=== PATIENT | female | born 1945 | race Caucasian/White ===

== ENCOUNTER → 2016-05-10 | Outpatient (CLI) | payer MEDICARE, OTHER ==
[~2016-05-10] MED LIST: ATR20T PO; LVT.1T PO; METH4TAB PO; ONDA8TAB13 PO; TRAM50TA2 PO; [UNRECOGNIZED DRUG - OTHER] PO
--- NOTE | 2016-05-10 08:49 | Diagnostic Imaging Report ---
PROCEDURE: CT abdomen and pelvis without contrast. TECHNIQUE: Multiple contiguous axial images were obtained through the abdomen and pelvis without the use of intravenous contrast. INDICATION: Hematuria. FINDINGS: The lung bases appear clear. In the left hepatic lobe there is a 2.4-cm hypodense lesion and a smaller similar density lesion in the right hepatic dome posteriorly measuring 1.3 cm. These are likely related to hepatic cysts. The gallbladder, the adrenal glands, and the pancreas appear unremarkable. The spleen is not enlarged. There are numerous calcifications seen in the spleen compatible with old granulomas. There are calcifications along the lower pole of the right kidney. Some of these calcifications could be vascular. A 4-mm nonobstructive stone in the lower pole, however, is suggested. There is no hydronephrosis. No ureteric stone is identified. The pelvic calcification seen appears to relate to phleboliths. No urinary bladder stones. The uterus and adnexa appear grossly unremarkable. The abdominal aorta is normal in caliber. No para-aortic or iliac significantly enlarged lymph node is seen. There is no significant free fluid or fluid collection in the abdomen or pelvis. Diverticulosis mostly in the sigmoid colon without diverticulitis is seen. The appendix appears normal. There is prominent scoliosis convex to the left in the upper lumbar spine with old-appearing compression fracture of L2 and less prominent also old-appearing compression fracture of L1 seen. IMPRESSION: 1. Calcifications in the right renal hilum are mostly vascular. There is probable one 4-mm nonobstructive lower pole right kidney stone, however. No hydronephrosis. 2. Diverticulosis. No diverticulitis. 3. Marked scoliosis and old compression fractures of L1 and L2 vertebral bodies seen. Dictated by: Dictated on workstation # [id number]
== END ==
LOC: RAD 08:10
PROVIDERS: ATTEND Urology
DX: R31.9 Hematuria, unspecified (principal)
CPT/HCPCS: 74176

== ENCOUNTER → 2020-02-09 | Outpatient (CLI) | payer MEDICARE, OTHER ==
--- NOTE | 2020-02-09 09:01 | Diagnostic Imaging Report ---
PROCEDURE: US Thyroid. TECHNIQUE: Multiple Real-time grayscale images were obtained of the thyroid in various projections. INDICATION: Hypothyroidism. COMPARISON: None available. FINDINGS: The right lobe of the thyroid gland is small in size measuring 3.3 x 1.4 x 0.9 cm. It maintains a relatively homogeneous echotexture without discrete nodule. The left lobe of the thyroid gland is small in size measuring 2.8 x 0.9 x 0.6 cm. It maintains a relatively homogeneous echotexture without discrete nodule. The isthmus is unremarkable. IMPRESSION: Diffusely small thyroid gland without discrete nodule. Dictated by: Dictated on workstation # [id number]
--- NOTE | 2020-02-09 09:02 | Diagnostic Imaging Report ---
INDICATION: Epigastric pain. PROCEDURE: Ultrasound abdomen complete. TECHNIQUE: Multiple Real-time grayscale images were obtained of the abdomen in various projections. FINDINGS: The liver is normal in size at 13 cm. There is a cyst in the left lobe of the liver measuring approximately 3 cm in size. No solid liver mass is identified. The portal vein is patent and shows normal direction of flow. The gallbladder is without stones or sludge. No wall thickening or biliary ductal dilatation is seen. The pancreas is unremarkable. The spleen is normal in size at 8.7 cm. Atherosclerotic changes throughout the abdominal aorta are noted which is nonaneurysmal. The IVC is patent. The right and left kidneys are normal in size. No calculus or hydronephrosis is identified. There is no ascites. There are bilateral pleural effusions noted. IMPRESSION: 1. There is a 3 cm left lobe liver cyst. 2. No evidence of cholelithiasis or acute cholecystitis. 3. Bilateral pleural effusions. Dictated by: Dictated on workstation # [id number]
== END ==
LOC: RAD 07:00
PROVIDERS: ATTEND Family Medicine
DX: K76.89 Other specified diseases of liver (principal); E03.9 Hypothyroidism, unspecified; J90 Pleural effusion, not elsewhere classified; R60.9 Edema, unspecified
CPT/HCPCS: 76536; 76700

== ENCOUNTER → 2020-02-15 | Outpatient (CLI) | payer MEDICARE, OTHER ==
--- NOTE | 2020-02-15 16:09 | Diagnostic Imaging Report ---
PROCEDURE: CT chest, abdomen, and pelvis without contrast. TECHNIQUE: Multiple contiguous axial images were obtained through the chest, abdomen, and pelvis without the use of intravenous contrast. Auto Exposure Controls were utilized during the CT exam to meet ALARA standards for radiation dose reduction. INDICATION: Bilateral pleural effusions and dyspnea. Patient has history of breast carcinoma. COMPARISON: Correlation is made with prior CT abdomen and pelvis study from 05/10/2016. FINDINGS: CT chest: There are surgical clips in the left axilla. Postop changes of left-sided mastectomy are seen. No definite axillary lymphadenopathy is identified. Mediastinal and hilar evaluation is limited without intravenous contrast but no gross abnormality is seen. There are coronary arterial calcifications noted. The heart is markedly enlarged. There is a small amount of pericardial fluid. Small right and moderate left pleural effusion is seen. There appears to be an area of consolidation in the lingula. There is also some consolidation and air bronchograms in the left lower lobe. No discrete pulmonary mass is identified. There is some atelectasis or scarring in the right middle lobe. IMPRESSION: 1. Moderate left and small right pleural effusion. There is parenchymal consolidation in the lingula and left lower lobe. Minimal atelectasis or scarring in right middle lobe and right lower lobe is noted. No discrete mass is identified, although study is somewhat compromised due to absence of intravenous contrast. 2. Small pericardial effusion and cardiomegaly. CT abdomen and pelvis: Low attenuation lesions within the liver are noted suggestive of cysts. Gallbladder is unremarkable. Pancreas is difficult to evaluate due to absence of IV contrast. There are multiple granulomas within the spleen. There appear to be some nonobstructing calculi in lower pole of right kidney. No hydronephrosis is seen. Aorta is heavily calcified but non-aneurysmal. Bowel loops do not appear to be appreciably dilated. No definite free fluid is seen. Bladder is unremarkable. There is some edema in the subcutaneous tissues likely owing to anasarca. No definite osteolytic or blastic lesions are seen. IMPRESSION: 1. Hepatic cysts. 2. Nonobstructing right-sided nephrolithiasis. 3. Anasarca. 4. No other significant abnormality is detected. Dictated by: Dictated on workstation # [id number]
== END ==
LOC: CARD 13:49
PROVIDERS: ATTEND Family Medicine
DX: I51.7 Cardiomegaly (principal); J90 Pleural effusion, not elsewhere classified; J18.2 Hypostatic pneumonia, unspecified organism; N20.0 Calculus of kidney; K76.89 Other specified diseases of liver; R41.3 Other amnesia; R41.0 Disorientation, unspecified
CPT/HCPCS: 71250; 74176; 93306

== ENCOUNTER → 2020-02-18 | Outpatient (CLI) | payer MEDICARE, OTHER | LOC: CARD 10:11 | PROVIDERS: ATTEND Family Medicine | DX: I42.0 Dilated cardiomyopathy (principal) | CPT/HCPCS: 93005 ==

== ENCOUNTER → 2020-02-22 | Outpatient (CLI) | payer MEDICARE, OTHER ==
[~2020-02-22] MED LIST changes: +ASPI-1238 PO; +CLOP75TA28 PO; +FURO20TA4 PO; +LEVO88TA54 PO; +LOSA25TA41 PO; +MTP25TSR PO; +OXYB10TA29 PO; +POTA10CA43 PO; +SPIR25TA5 PO
--- NOTE | 2020-02-22 16:40 | Diagnostic Imaging Report ---
EXAMINATION: CT head without contrast. TECHNIQUE: Multiple contiguous axial images were obtained through the brain without the use of intravenous contrast. All CT scans use one or more of the following dose optimizing techniques: automated exposure control, MA and/or KvP adjustment based on a patient size and exam type, or iterative reconstruction. HISTORY: Confusion. COMPARISON: None available. FINDINGS: No large acute territorial ischemia, mass, or hemorrhage. No midline shift or mass effect. Decreased attenuation is seen in the periventricular and subcortical white matter. The ventricles and cortical sulci are prominent. The basilar cisterns are patent and unremarkable. The orbits are normal. Paranasal sinuses are normal. Mastoid air cells are clear. No soft tissue abnormality is seen. No osseus lesions or fractures are seen. IMPRESSION: 1. No large acute territorial ischemia, mass, or hemorrhage. 2. Chronic microvascular disease. 3. Generalized parenchymal volume loss. Dictated by: Dictated on workstation # [id number]
== END ==
LOC: RAD 15:55
PROVIDERS: ATTEND Family Medicine
DX: J90 Pleural effusion, not elsewhere classified (principal); R10.9 Unspecified abdominal pain; R41.3 Other amnesia; R41.0 Disorientation, unspecified; I99.8 Other disorder of circulatory system
CPT/HCPCS: 70450

== ENCOUNTER → 2020-02-23 | Outpatient (CLI) | payer MEDICARE, OTHER ==
[~2020-02-23] VITALS: Ht 152 cm; Wt 45.0 kg
[~2020-02-23] MED LIST changes: +CATHETER FLUSH 10 ML SYR IV PRN; +REGADENOSON 0.4 MG/5 ML SYR (LEXISCAN) IV ONE
[2020-02-23 09:19] VITALS: BP 128/98
[2020-02-23 09:21] VITALS: BP 128/98
--- NOTE | 2020-02-23 12:40 | Cardiology Stress Test Report ---
Stress Test Report Date of Procedure/Referring: Date of Procedure: Feb 23, 2020 PCP Ludmila Ulloa MD Admitting Physician Diane Arce DO Baseline Heart Rate: 93 Baseline Blood Pressure: Blood Pressure Systolic: 128 Blood Pressure Diastolic: 98 Baseline Vitals Vital Signs Date Time Temp Pulse Resp B/P (MAP) Pulse Ox O2 Delivery O2 Flow Rate FiO2 02/23/20 09:19 96 16 128/98 (108) 97 Room Air Baseline EKG: Baseline EKG: normal sinus rhythm Summary After explaining the procedure to the patient, she signed a consent and then brought to the stress nuclear laboratory. Patient received 0.4 mg Lexiscan for stress test, ECG, heart rate and blood pressure were monitored continuously. Resting and stress dose of radio tracer were injected, imaging was acquired and reviewed in short axis, horizontal long axis and vertical long axis views. TID: 1.07 SSS: 6 SDS: 2 EF: 18 1. Patient tolerated Lexiscan well 2. Decrease uptake involving the whole anterior wall and true apex and true apex with mild reversibility involving the mid to apical anterior wall suggestive of ischemia 3. Dilated left ventricle, inferior wall hypokinesia, EF 18 percent LUDMILA ULLOA MD Feb 23, 2020 12:40
== END ==
LOC: CARD 08:30
PROVIDERS: ATTEND Internal Medicine Cardiovascular Disease
DX: I50.9 Heart failure, unspecified (principal); I51.7 Cardiomegaly
CPT/HCPCS: 78452; 93017; A9502

== ENCOUNTER 2020-02-24 16:00 | Day surgery (SDC) | payer MEDICARE ==
[~2020-02-24] VITALS: Ht 152.4 cm; Wt 43.0 kg
[2020-02-24 14:20] VITALS: BP 138/93
[2020-02-24 14:24] LABS: HEMOGLOBIN 15.8 g/dL (11.5-16.0); MEAN PLATELET VOLUME 9.5 fL (9.0-12.2); WHITE BLOOD COUNT 9.8 10^3/uL (4.3-11.0)
[2020-02-24 14:42] LABS: ALANINE AMINOTRANSFERASE 39 U/L (0-55); ALBUMIN 4.7 GM/DL (3.2-4.5); ALKALINE PHOSPHATASE 131 U/L (40-136); BILIRUBIN,TOTAL 0.8 MG/DL (0.1-1.0); BUN/CREATININE RATIO 19; CALCIUM 10.2 MG/DL (8.5-10.1); CARBON DIOXIDE 26 MMOL/L (21-32); CHLORIDE 99 MMOL/L (98-107); CHOLESTEROL 164 MG/DL (< 200); CREATININE SERUM 0.86 MG/DL (0.60-1.30); GFR ESTIMATED > 60; GLUCOSE 84 MG/DL (70-105); HDL CHOLESTEROL 59 MG/DL (40-60); POTASSIUM 4.2 MMOL/L (3.6-5.0); SODIUM 135 MMOL/L (135-145); TOTAL PROTEIN 7.6 GM/DL (6.4-8.2); TRIGLYCERIDES 74 MG/DL (<150); VLDL CHOLESTEROL 15 MG/DL (5-40)
--- NOTE | 2020-02-24 15:04 | Diagnostic Imaging Report ---
INDICATION: Preop heart catheter. EXAMINATION: Portable erect AP chest at 2:28 p.m. FINDINGS: The recent CT chest, abdomen and pelvis exam of 02/15/2020 noted cardiomegaly and a small pericardial effusion. There were also bilateral pleural effusions with a left-sided effusion measuring almost 6 cm in maximum depth. The right-sided effusion measures 1.2 cm. There is also atelectasis/infiltrate involving much of the left lung base and lingula. On this study, the left lung base remains opacified. The left upper lung and right lung seem generally clear. There may still be a small amount of fluid in the right lung base. The heart is difficult to evaluate but does not appear to have changed significantly. The mediastinum is not widened. The osseous structures are intact. Surgical clips are again seen overlying the left axilla. IMPRESSION: 1. There is persistent cardiomegaly and obscuration of the left lung base by atelectasis/infiltrate and fluid. 2. No new abnormality has developed otherwise. 3. These results were discussed with Dr. Ulloa. Dictated by: Dictated on workstation # [id number]
--- NOTE | 2020-02-24 15:43 | Cardiac Procedure Note-CS/ASA ---
Pre-Procedure Note Pre-Op Procedure Note H&P Reviewed The H&P was reviewed, patient examined and no changes noted. Date H&P Reviewed: Feb 24, 2020 Time H&P Reviewed: 15:43 Conscious Sedation Pre-Proced Time 15:43 ASA Score 3 For ASA 3 and 4: Consider anesthesia and medical clearance. Also, for patients with a history of failed moderate sedation consider anesthesia. Airway Lungs Heart ASA score ASA 1: a normal healthy patient ASA 2: a patient with a mild systemic disease (mid diabetes, controlled hypertension, obesity x ASA 3: a patient with a severe systemic disease that limits activity (angina, COPD, prior Myocardial infarction) ASA 4: a patient with an incapacitating disease that is a constant threat to life (CHF, renal failure) ASA 5: a moribund patient not expected to survive 24 hrs. (ruptured aneurysm) ASA 6: a declared brain- patient whose organs are being harvested. For emergent operations, add the letter E after the classification Mallampati Classification Grade 3 Sedation Plan Analgesia, Amnesia, Plan communicated to team members, Discussed options with patient/fam, Discussed risks with patient/fam The patient is an appropriate candidate to undergo the planned procedure, sedation, and anesthesia. The patient immediately re-assessed prior to indication. LUDMILA GREEN MD Feb 24, 2020 15:43
[~2020-02-24 16:00] MED LIST changes: -ASPI-1238 PO; -CATHETER FLUSH 10 ML SYR IV PRN; -CLOP75TA28 PO; +HEParin (CATH LAB) 2,000 ML IV ONE; +LIDOCAINE 1% INJ 20 ML 20 ML VIAL ONE; +MIDAZOLAM 5 MG/5 ML (VERSED) VIAL ONE; +NS IV 1000 ML 1,000 ML IV SCH; +NS IV 1000 ML 1,000 ML ONE; -REGADENOSON 0.4 MG/5 ML SYR (LEXISCAN) IV ONE; +fentaNYL INJECTION 100 MCG/2 ML AMP ONE
[2020-02-24] MEDS ORDERED: HEParin 1000 UNIT/ML (10ML VIAL) FOR BOLUS ONE (16:08)
[2020-02-24] MEDS ORDERED: NITRO DRIP 25000 MCG/D5W 250 ML IV ONE (16:08)
[2020-02-24] MEDS ORDERED: ASPIRIN 325 MG (5 GR) TABLET ONE (16:49)
[2020-02-24] MEDS ORDERED: CLOPIDOGREL 300 MG (PLAVIX) TABLET PO ONE (16:50)
[2020-02-24] MEDS ORDERED: PATIENT MAY USE OWN MEDS, ALL PO SCH (17:00)
[2020-02-24] MEDS: NS IV 1000 ML 1,000 ML IV SCH (17:00)
--- NOTE | 2020-02-24 17:07 | Cardiac Cath Report ---
Cardiac Cath Report Physician (s)/Drug Safety Physician (s) Physician LUDMILA GREEN MD Pre-Procedure Diagnosis Pre-Procedure Diagnosis: congestive heart failure, coronary artery disease Post-Procedure Note Procedure Start Date: Feb 24, 2020 Name of Procedure: Left heart catheterization Stent to the LAD Findings/Procedure Note PROCEDURE NOTE: 74-year-old lady with severe cardiomyopathy had an abnormal stress test, scheduled for cardiac catheterization possible PTCA. After explaining the procedure to the patient, all pros and cons were explained, all questions were answered. The patient signed the consent and then she was placed on the cardiac catheterization laboratory. Groin was prepped SL fashion local anesthesia was used. Sheath placed in the right femoral artery. Ghada right and left catheter were used to access the coronary system. Pigtail was used to access the left ventricular cavity. Left ventriculogram was not done, pressure was measured Patient was noted to have multiple segment of severe stenosis in the LAD, decision to proceed with percutaneous intervention was made. I attempted to access the LAD with FL guide, EBU guide without success, I was able to advance Voda guide, due to the severe stenosis and significant tortuosity I was unable to advance BMW wire. I used Mr. extra-support infarcted distally. Decided to proceed with primary stenting. I attempted with resolute Kael 2 x 8mm, I was unable to advance it distally, in the midportion I deployed it under 12 daina with good results, proximally I used 2.75 by 8mm integrity drug-eluting stent expanded with noncompliant balloon to 3.1 mm in the proximal LAD. The distal LAD has multiple segment of severe stenosis of the artery is fairly small, ang iogram showed excellent results At the end of the procedure the sheath was removed. Closure device was deployed FINDINGS: Hemodynamics LV 110/23, end-diastolic pressure of 23 Aorta 113/63 mean of 55 ANATOMY: Left Main is free of obstructive disease Left Anterior Descending is diffusely diseased with severe stenosis at multiple segment. I was unable to reach the distal LAD with intervention due to the size of the vessel and tortuosity. I deployed 2 stents in the proximal and mid LAD using resolute integrity 2.75 x 15 mm expanded to 3.1 mm with excellent results proximally and midportion 2.5 x 8mm deployed to its nominal position with excellent results, distal LAD has multiple segment of severe stenosis at the artery is less than 1.5 mm in diameter Left Circumflex is moderate in size with mild disease nonobstructive disease Right Coronory Artery is large dominant artery with 50 percent stenosis at the midportion LV Gram was not done, pressure was measured Aorta was not evaluated with angiogram but there was significant tortuosity with S-shaped abdominal aorta noted during the procedure CONCLUSION: 1. Severe diffuse LAD stenosis with complex intervention and deployment of 2 stents proximally resolute integrity 2.75 x 15 mm expanded to 3.1 mm and midportion 2.5 by 8mm deployed it to its nominal size. Distal LAD has multiple segment of severe stenosis that is less than 1.5 mm in diameter not amendable to intervention 2. 50 percent stenosis in the midright coronary artery, mild nonobstructive disease in the circumflex artery 3. Severe cardiomyopathy known to have ejection fraction 20 percent, elevated left ventricular end-diastolic pressure 4. Large left side pleural effusion noted incidentally DISCUSSION AND RECOMMENDATION: Patient was started on aggressive diuresis, aspirin and Plavix. Arrangement to see Dr. Carroll next week. We will continue with diuresis at this time. Anesthesia Type: Conscious Sedation Estimated blood loss (mL): 35 ml Contrast Amount: 154 ml Total Radiation Dose: 407 mGy Post-Procedure Diagnosis Post-operative diagnosis: Coronary artery disease Congestive heart failure, acute on chronic left ventricular systolic dysfunction, ischemic cardiomyopathy Hypertension Hyperlipidemia LUDMILA GREEN MD Feb 24, 2020 17:07
[2020-02-24] MEDS ORDERED: ASPI-1238 PO (17:09)
[2020-02-24] MEDS ORDERED: CLOP75TA28 PO (17:09)
--- NOTE | 2020-02-24 17:09 | Discharge Inst-Post CATH ---
Discharge Inst-CATH/EP Problems Reviewed?: Yes Post Cardiac Cath/EP D/C Inst Follow Up/Plan Appointment with Dr. Carroll's office on Friday, February 28, 2020 at [address] Ulloa's office in one to 2 weeks <b>CARDIAC CATH/EP PROCEDURE DISCHARGE INSTRUCTIONS</b> ACTIVITY * Go Home directly and rest. * Limit activity of the leg (or wrist if it was used) for 7 days including aerobics, swimming, jogging, bicycling, etc. * Restrict stair-climbing for 7 days if possible, if not, climb up with your non-cath leg, then bring together on the same step. * Avoid lifting, pushing, pulling or excessive movement of the affected extremity for 7 days. * Customary sexual activity may be resumed after 2 days-use caution not to use a position that strains or causes pain to the affected extremity. * No driving for 24 hours. * NO SMOKING. * Avoid straining for bowel movements for 7 days. * Gentle walking on level ground is allowed. * Returning to work will depend on the type of procedure and the results. Your doctor will discuss this with you. CALL YOUR DOCTOR FOR ANY OF THE FOLLOWING: *If bleeding from the puncture site occurs- Apply gentle pressure to site with clean cloth and call your doctor or EMS. * If a knot or lump forms under the skin, increases in size, or causes pain. * If bruising appears to be worsening or moving further down your leg instead of disappearing. * Temperature above 101 F. CARE OF YOUR GROIN INCISION; * Bruising or purple discoloration of the skin near the puncture site is common. * You may shower only, no bathtub bathing for 5 days. Be careful to avoid slipping as your leg may feel stiff. * If a closure device was used on your femoral artery, please see the attached guide regarding care of the device and your leg. * Leave dressing on FOR 24 hours. CARE OF YOUR WRIST INCISION; * Bruising or purple discoloration of the skin near the puncture site is common. * You may shower. * DO NOT submerge wrist. * Leave dressing on FOR 24 hours. LUDMILA ULLOA MD Feb 24, 2020 5:09 pm
[2020-02-24 17:30] VITALS: BP 121/86
[2020-02-24 17:45] VITALS: BP 116/88
[2020-02-24 18:00] VITALS: BP 118/91
[2020-02-24 19:44] VITALS: BP 122/93
[2020-02-24] MEDS: FUROSEMIDE 40 MG/4 ML INJ (LASIX) IVP SCH (20:16)
[2020-02-24] MEDS ORDERED: NON-FORMULARY MEDICATION 1 EA EA (Atorvastatin (Lipitor 20MG) 20 MG) PO SCH (21:00)
[2020-02-24 23:50] VITALS: BP 100/77
[2020-02-25 03:23] LABS: HEMOGLOBIN 14.6 g/dL (11.5-16.0); MEAN PLATELET VOLUME 9.8 fL (9.0-12.2); WHITE BLOOD COUNT 9.9 10^3/uL (4.3-11.0)
[2020-02-25 03:42] LABS: BUN/CREATININE RATIO 22; CALCIUM 9.1 MG/DL (8.5-10.1); CARBON DIOXIDE 20 MMOL/L (21-32); CHLORIDE 101 MMOL/L (98-107); CREATININE SERUM 0.74 MG/DL (0.60-1.30); GFR ESTIMATED > 60; GLUCOSE 76 MG/DL (70-105); POTASSIUM 3.3 MMOL/L (3.6-5.0); SODIUM 135 MMOL/L (135-145)
[2020-02-25 04:00] VITALS: BP 100/65
[2020-02-25] MEDS: FUROSEMIDE 40 MG/4 ML INJ (LASIX) IVP SCH (06:28)
[2020-02-25] MEDS ORDERED: LEVOTHYROXINE 88 MCG (LEVOTHORID) TAB PO SCH (06:30)
[2020-02-25] MEDS ORDERED: KCL 20 MEQ TAB (K-DUR) PO ONE (07:00)
[2020-02-25 07:14] VITALS: BP 105/75
[2020-02-25] MEDS: NS IV 1000 ML 1,000 ML IV SCH (07:22)
[2020-02-25] MEDS ORDERED: KCL 10 MEQ TAB (MICRO K) PO SCH (08:00)
[2020-02-25] MEDS ORDERED: CLOPIDOGREL 75 MG (PLAVIX) TABLET PO SCH (09:00)
[2020-02-25] MEDS ORDERED: SPIRONOLACTONE 25 MG (ALDACTONE) TAB PO SCH (09:00)
[2020-02-25] MEDS ORDERED: ASPIRIN E.C. 81 MG (ECOTRIN) TAB PO SCH (09:00)
[2020-02-25] MEDS ORDERED: LOSARTAN 25 MG (COZAAR) TAB PO SCH (09:00)
[2020-02-25] MEDS ORDERED: NON-FORMULARY MEDICATION 1 EA EA (Oxybutynin Chloride (Oxybutynin Chloride ER) 10 MG) PO SCH (09:00)
[2020-02-25] MEDS ORDERED: NON-FORMULARY MEDICATION 1 EA EA (Potassium Chloride 10 MEQ) PO SCH (09:00)
--- NOTE | 2020-02-25 11:12 | Cardiology Progress Note ---
Cardiology SOAP Progress Note Objective: I&O/Vital Signs 02/24/20 02/25/20 02/25/20 02/25/20 23:50 01:00 04:00 07:00 Temp 36.6 36.8 Pulse 71 64 66 71 Resp 15 16 B/P (MAP) 100/77 (85) 100/65 (77) Pulse Ox 96 93 O2 Delivery Room Air Room Air 02/25/20 07:14 Temp 36.4 Pulse 75 Resp 25 B/P (MAP) 105/75 (85) Pulse Ox 95 O2 Delivery Room Air Weight (Pounds): 120 Weight (Calculated Kilograms): 54.645742 Results/Procedures: Labs Laboratory Tests 02/24/20 14:18: White Blood Count 9.8, Red Blood Count 5.29H, Hemoglobin 15.8, Hematocrit 49, Mean Corpuscular Volume 92, Mean Corpuscular Hemoglobin 30, Mean Corpuscular Hemoglobin Concent 32, Red Cell Distribution Width 12.9, Platelet Count 331, Mean Platelet Volume 9.5, Prothrombin Time 14.0, INR Comment 1.0, Activated Partial Thromboplast Time 32, Sodium Level 135, Potassium Level 4.2, Chloride Level 99, Carbon Dioxide Level 26, Anion Gap 10, Blood Urea Nitrogen 16, Creatinine 0.86, Estimat Glomerular Filtration Rate > 60, BUN/Creatinine Ratio 19, Glucose Level 84, Calcium Level 10.2H, Corrected Calcium , Total Bilirubin 0.8, Aspartate Amino Transf (AST/SGOT) 38H, Alanine Aminotransferase (ALT/SGPT) 39, Alkaline Phosphatase 131, B-Type Natriuretic Peptide 1970.3H, Total Protein 7.6, Albumin 4.7H, Triglycerides Level 74, Cholesterol Level 164, LDL Cholesterol Direct 99, VLDL Cholesterol 15, HDL Cholesterol 59 02/25/20 02:57: White Blood Count 9.9, Red Blood Count 4.81, Hemoglobin 14.6, Hematocrit 43, Mean Corpuscular Volume 90, Mean Corpuscular Hemoglobin 30, Mean Corpuscular Hemoglobin Concent 34, Red Cell Distribution Width 12.8, Platelet Count 297, Mean Platelet Volume 9.8, Sodium Level 135, Potassium Level 3.3L, Chloride Level 101, Carbon Dioxide Level 20L, Anion Gap 14, Blood Urea Nitrogen 16, Creatinine 0.74, Estimat Glomerular Filtration Rate > 60, BUN/Creatinine Ratio 22, Glucose Level 76, Calcium Level 9.1 A/P: Thank you for your consultation. Please call me if you have any questions. Andriy Torres MD, FACP, FACC, FSCAI, FHRS, CCDS Interventional Cardiology Cardiac Electrophysiology Vascular Medicine and Endovascular Interventions Temo TORRES MD Feb 25, 2020 11:12
[2020-02-25 11:53] VITALS: BP 100/74
[2020-02-25] MEDS ORDERED: OXYBUTYNIN (DITROPAN) 5 MG TAB PO SCH (12:00)
== END 2020-02-25 12:30 | disposition home or self-care (01) ==
LOC: CATH 16:00 → CSD 17:47 → CATH 02-25 12:30
PROVIDERS: ATTEND Internal Medicine Cardiovascular Disease
DX: I25.10 Atherosclerotic heart disease of native coronary artery without angina pectoris (principal); I11.0 Hypertensive heart disease with heart failure; I50.23 Acute on chronic systolic (congestive) heart failure; E78.2 Mixed hyperlipidemia; E03.9 Hypothyroidism, unspecified; R94.39 Abnormal result of other cardiovascular function study; Z79.899 Other long term (current) drug therapy; Z88.0 Allergy status to penicillin; Z88.2 Allergy status to sulfonamides; Z87.891 Personal history of nicotine dependence
CPT/HCPCS: 71045; 80048; 80053; 80061; 83880; 85027 ×2; 85610; 85730; 87081; 93005; 93458; C1725; C1760; C1769 ×2; C1874 ×2; C1887 ×3; C1894; C9600; 36415

== ENCOUNTER → 2020-03-31 | Outpatient (CLI) | payer MEDICARE, OTHER ==
[~2020-03-31] MED LIST changes: +ASPI-1238 PO; +CATHETER FLUSH 10 ML SYR IV PRN; +CLOP75TA28 PO; -HEParin (CATH LAB) 2,000 ML IV ONE; +HOLD METFORMIN - RECEIVED CONTRAST 20 ML VIAL IV SCH; +IOHEXOL 350 MG/ML 100 ML (OMNIPAQUE 350) VIAL IV ONE; -LIDOCAINE 1% INJ 20 ML 20 ML VIAL ONE; -MIDAZOLAM 5 MG/5 ML (VERSED) VIAL ONE; +NS 100 ML (IVPB) BAG IV ONE; -NS IV 1000 ML 1,000 ML IV SCH; -NS IV 1000 ML 1,000 ML ONE; +RT-ALBUTEROL SULF 2.5 MG/3 ML PRE-MIX VIAL INH ONE; -fentaNYL INJECTION 100 MCG/2 ML AMP ONE
[2020-03-31 08:12] LABS: ABG BASE EXCESS 2.2 MMOL/L (-2.5-2.5); ABG OXYGEN SATURATION 97 % (94-100); ABG PCO2 36 MMHG (35-45); ABG PH 7.46 (7.37-7.43); ABG PO2 88 MMHG (79-93); VENTILATOR NO
[2020-03-31 08:13] LABS: ALLENS TEST YES-POS; INSPIRED O2 ROOM AIR; PATIENT TEMP 36.1
--- NOTE | 2020-03-31 10:47 | Diagnostic Imaging Report ---
PROCEDURE: CT chest with contrast only. TECHNIQUE: Multiple contiguous axial images were obtained through the chest after administration of intravenous contrast. Auto Exposure Controls were utilized during the CT exam to meet ALARA standards for radiation dose reduction. INDICATION: Dyspnea COMPARISON with overlapped images from an abdominal CT 02/15/2020. There is bilateral air trapping. There is very mild subpleural scarring in the left apex anteriorly. No acute consolidating infiltrate or derrick pneumonia. No findings of pulmonary edema or hemorrhage. Mild left basilar juxta fissural atelectasis or scarring, chronic. Previous left greater than right pleural effusions have completely resolved. No pleural fluid or pneumothorax apparent. There are heavy coronary arterial atherosclerotic vascular calcifications. The thoracic aorta is patent and nonaneurysmal. There is scoliotic curvature to the spine with no acute appearing soft tissue or osseous chest wall pathology. No axillary, hilar or mediastinal lymphadenopathy. No suspicious lung mass. The visualized upper abdomen revealed atherosclerotic disease, hepatic cysts, splenic calcified granulomata with no hydronephrosis and no free air or loculated fluid collection. IMPRESSION: Resolution of pleural effusions and resolution of zones of atelectasis. No acute cardiopulmonary abnormality. Coronary atherosclerotic vascular disease. No mass or adenopathy. Dictated by: Dictated on workstation # [id number]
== END ==
LOC: RT 08:00
PROVIDERS: ATTEND Internal Medicine Critical Care Medicine
DX: Z13.83 Encounter for screening for respiratory disorder NEC (principal); I25.10 Atherosclerotic heart disease of native coronary artery without angina pectoris
CPT/HCPCS: 36600; 71260; 82805; 94060; 94726; 94729

== ENCOUNTER → 2020-03-31 | Outpatient (CLI) | payer MEDICARE, OTHER ==
[~2020-03-31] MED LIST changes: -CATHETER FLUSH 10 ML SYR IV PRN; -HOLD METFORMIN - RECEIVED CONTRAST 20 ML VIAL IV SCH; -IOHEXOL 350 MG/ML 100 ML (OMNIPAQUE 350) VIAL IV ONE; -NS 100 ML (IVPB) BAG IV ONE; -RT-ALBUTEROL SULF 2.5 MG/3 ML PRE-MIX VIAL INH ONE
[2020-03-31 08:18] LABS: BUN/CREATININE RATIO 35; CREATININE SERUM 0.75 MG/DL (0.60-1.30); GFR ESTIMATED > 60
== END ==
LOC: LAB 07:30
PROVIDERS: ATTEND Internal Medicine Critical Care Medicine
DX: Z13.83 Encounter for screening for respiratory disorder NEC (principal); R06.00 Dyspnea, unspecified
CPT/HCPCS: 36415; 82565; 84520

== ENCOUNTER → 2020-05-29 | Outpatient (CLI) | payer MEDICARE, OTHER | LOC: CARD 08:30 | PROVIDERS: ATTEND Internal Medicine Cardiovascular Disease | DX: I11.9 Hypertensive heart disease without heart failure (principal); I08.0 Rheumatic disorders of both mitral and aortic valves | CPT/HCPCS: 93306 ==

== ENCOUNTER → 2020-06-19 | Outpatient (CLI) | payer MEDICARE, OTHER ==
[~2020-06-19] MED LIST changes: +CEFU500T63 PO; +CHOL10007 PO; +FURO40TA4 PO; +IBUP-2473 PO; +SACU1TAB2 PO; +WALK1EAC23 MC
== END ==
LOC: LABNPT 06:42
PROVIDERS: ATTEND Internal Medicine Cardiovascular Disease
DX: Z01.812 Encounter for preprocedural laboratory examination (principal); Z20.822 Contact with and (suspected) exposure to COVID-19
CPT/HCPCS: 87635

== ENCOUNTER 2020-06-21 07:02 | Day surgery (SDC) | payer MEDICARE, OTHER ==
[~2020-06-21] VITALS: Ht 147.5 cm; Wt 44.6 kg
[2020-06-21] VITALS (11 sets, daily range): BP systolic 98–118; BP diastolic 54–74
[~2020-06-21 07:02] MED LIST changes: -CEFU500T63 PO; -CHOL10007 PO; -FURO40TA4 PO; -IBUP-2473 PO; -SACU1TAB2 PO; -WALK1EAC23 MC
[2020-06-21] MEDS ORDERED: HEParin (CATH LAB) 1,000 ML IV ONE (07:26)
[2020-06-21] MEDS ORDERED: NS IV 1000 ML 1,000 ML ONE (07:26)
[2020-06-21] MEDS ORDERED: LIDOCAINE 1% INJ 20 ML 20 ML VIAL ONE (07:26)
[2020-06-21] MEDS ORDERED: NS IV 1000 ML 1,000 ML IV SCH ×2 (07:45→10:45)
[2020-06-21] MEDS ORDERED: BACITRACIN INJECTION 50,000 UNIT, SODIUM CHLORIDE 0.9% IRRIGATIO 500 ML IR ONE ×2 (07:45)
[2020-06-21] MEDS ORDERED: VANCOMYCIN INJECTION 1,000 MG in NS (IVPB) 250 ML IV ONE (07:45)
[2020-06-21 08:04] LABS: HEMATOCRIT 36 % (35-52); HEMOGLOBIN 12.3 g/dL (11.5-16.0); MEAN CORPUSCULAR HEMOGLOBIN 31 pg (25-34); MEAN CORPUSCULAR HGB CONC 34 g/dL (32-36); MEAN CORPUSCULAR VOLUME 93 fL (80-99); MEAN PLATELET VOLUME 9.1 fL (9.0-12.2); PLATELET COUNT 308 10^3/uL (130-400); WHITE BLOOD COUNT 6.2 10^3/uL (4.3-11.0)
[2020-06-21 08:12] LABS: INR 1.1 (0.8-1.4); PROTHROMBIN TIME PATIENT 14.1 SEC (12.2-14.7)
--- NOTE | 2020-06-21 08:18 | Diagnostic Imaging Report ---
INDICATION: CHF. Time of exam 7:51 AM Correlation is made with prior chest from 02/24/2020. Defibrillator leads overlie the chest. The heart size is stable. Lungs are clear. There is no infiltrate or failure. There is no effusion or pneumothorax. IMPRESSION: No acute cardiopulmonary process is detected. Dictated by: Dictated on workstation # [id number]
[2020-06-21 08:20] LABS: ALANINE AMINOTRANSFERASE 62 U/L (0-55); ALBUMIN 4.3 GM/DL (3.2-4.5); ALKALINE PHOSPHATASE 78 U/L (40-136); BILIRUBIN,TOTAL 0.5 MG/DL (0.1-1.0); BUN/CREATININE RATIO 20; CALCIUM 9.1 MG/DL (8.5-10.1); CARBON DIOXIDE 27 MMOL/L (21-32); CHLORIDE 96 MMOL/L (98-107); CHOLESTEROL 186 MG/DL (< 200); CREATININE SERUM 0.69 MG/DL (0.60-1.30); GFR ESTIMATED > 60; GLUCOSE 87 MG/DL (70-105); HDL CHOLESTEROL 58 MG/DL (40-60); POTASSIUM 4.1 MMOL/L (3.6-5.0); SODIUM 133 MMOL/L (135-145); TOTAL PROTEIN 6.7 GM/DL (6.4-8.2); TRIGLYCERIDES 76 MG/DL (<150); VLDL CHOLESTEROL 15 MG/DL (5-40)
[2020-06-21] MEDS ORDERED: IBUP-2473 PO (08:58)
[2020-06-21] MEDS ORDERED: CHOL10007 PO (08:58)
[2020-06-21] MEDS ORDERED: CLOP75TA28 PO (08:58)
[2020-06-21] MEDS ORDERED: SACU1TAB2 PO (08:58)
[2020-06-21] MEDS ORDERED: FURO40TA4 PO (08:58)
[2020-06-21] MEDS ORDERED: ASPI-1238 PO (08:58)
[2020-06-21] MEDS ORDERED: fentaNYL INJ 100 MCG/2 ML AMP ONE (09:18)
[2020-06-21] MEDS ORDERED: MIDAZOLAM 5 MG/5 ML (VERSED) VIAL ONE (09:18)
--- NOTE | 2020-06-21 09:55 | Conscious Sedation/ASA ---
Conscious Sedation Pre-Proced Time 09:55 ASA Score 3 For ASA 3 and 4: Consider anesthesia and medical clearance. Also, for patients with a history of failed moderate sedation consider anesthesia. Airway Lungs Heart ASA score ASA 1: a normal healthy patient ASA 2: a patient with a mild systemic disease (mid diabetes, controlled hypertension, obesity x ASA 3: a patient with a severe systemic disease that limits activity (angina, COPD, prior Myocardial infarction) ASA 4: a patient with an incapacitating disease that is a constant threat to life (CHF, renal failure) ASA 5: a moribund patient not expected to survive 24 hrs. (ruptured aneurysm) ASA 6: a declared brain- patient whose organs are being harvested. For emergent operations, add the letter E after the classification Mallampati Classification Grade 3 Sedation Plan Analgesia, Amnesia, Plan communicated to team members, Discussed options with patient/fam, Discussed risks with patient/fam The patient is an appropriate candidate to undergo the planned procedure, sedation, and anesthesia. The patient immediately re-assessed prior to indication. LUDMILA GREEN MD June 21, 2020 09:55
[2020-06-21] MEDS ORDERED: proPOfol 200 MG/20 ML (DIPRIVAN) VIAL IV ONE (10:14)
[2020-06-21] MEDS ORDERED: PATIENT MAY USE OWN MEDS, ALL PO SCH (10:45)
--- NOTE | 2020-06-21 10:47 | ICD Implantation ---
Single Chamber ICD Implant DATE OF SERVICE: 75 female SINGLE CHAMBER ICD IMPLANTATION SURGICAL INSTRUMENT TECHNICIAN: Ludmila Ulloa INDICATION: PREOPERATIVE DIAGNOSES: POSTOPERATIVE DIAGNOSES: HISTORY: ICD implantation is recommended. PROCEDURE PERFORMED: 1. Single-chamber ICD implantation. 2. Implantable loop recorder explantation. 3. Venogram. 4. DFT testing. COMPLICATIONS: None. ESTIMATED BLOOD LOSS: 20 mL. SPECIMENS: None. ANESTHESIA: Conscious sedation. ORAL ANTICOAGULATION: None. FLUOROSCOPY TIME: FLUOROSCOPY DOSE: CONTRAST DOSE: PROCEDURE DETAILS: After all the questions were answered, an informed consent was taken. All the risks and complication were explained in detail. The patient was brought to the EP lab. The patient's right and left chest was prepped and draped in the usual sterile fashion. A 2-inch horizontal incision was made 1 cm below the clavicle and dissection carried down to the pectoralis fascia. IV antibiotics were administered prior to first incision. Under fluoroscopic guidance, access was gained in the axillary vein and a regular J-wire was placed. We then introduced a sheath into the axillary vein. A ICD lead was inserted. This is a single- coiled ICD lead. The RV lead was inserted across the tricuspid valve to an apical septal portion of the RV. The lead position was checked in [place] view. The screw was deployed and lead connected to the android programmer. Good sensing and pacing thresholds were obtained. Diaphragmatic pacing was ruled out. The lead was secured with 2-0 Vicryl nonabsorbable sutures. The lead was secured to the underlying muscle and fascia. We then took an ICD generator and the lead was connected to the device in a hermetic fashion. The device and it was placed in the pocket. Aggressive irrigation with normal saline solution was done. Interrogation of the device revealed good integrity of the leads and connection. The wound was closed using 2 layers. The first layer was an interrupted 2-0 Vicryl. The second layer was an uninterrupted 4-0 Vicryl suture. Half inch Steri-Strips and a small dressing was then applied to the wound. DFT testing was done with anesthesia support. The induction mechanism was a T- shock. The first T-shock was at 290 milliseconds at one joule. Ventricular fibrillation was noted, good sensing and detection, delivery was done with 1 shock and it was successful with 30 J in terminating ventricular fibrillation. Patient returned to sinus rhythm DEVICE INFORMATION: ICD [place] XT VR MRI [id number] RV lead [id number] INTRAOPERATIVE DEVICE TESTING: Stimulation threshold bipolar at 0.4 ms with 0.5 V, impedance 456, R wave 11 mV Diaphragmatic stimulation was noted at 10 mV, disappeared at 6 millivolts, I decided to keep the device in due to the fact that patient is not pacemaker dependent and need the ICD mainly for primary prevention PLAN: The patient will be observed for 23 hours. We will continue with two more dosages of IV antibiotics. We will check a chest x-ray and interrogate the device in the morning. An EKG will be done as well. If everything checks out, the patient will be discharged tomorrow. CONCLUSION: Successful single-chamber ICD implantation with no complication Successful DFT testing with no complication FINAL DIAGNOSIS: Congestive heart failure, chronic compensated left ventricular systolic dysfunction, ischemic cardiomyopathy Coronary artery disease Hypertension Hyperlipidemia LUDMILA ULLOA MD June 21, 2020 10:47
--- NOTE | 2020-06-21 11:35 | Diagnostic Imaging Report ---
Indication: Pacemaker placement. Time of exam 11:17 AM Correlation is made with prior chest radiograph earlier same day. Cardiac defibrillatory has been placed. The lungs are clear. There is no pneumothorax. There is no effusion. IMPRESSION: Defibrillatory placement. No complicating features are identified. Dictated by: Dictated on workstation # [id number]
[2020-06-21] MEDS: ceFAZolin INJECTION 1,000 MG in WATER (STERILE) FOR INJECTION 10 ML IV SCH ×2 (13:21→21:13)
[2020-06-21] MEDS: ACETAMINOPHEN 500 MG TAB (TYLENOL) PO PRN ×2 (16:37→23:25)
[2020-06-21] MEDS ORDERED: ASPIRIN E.C. 81 MG (ECOTRIN) TAB PO SCH (21:00)
[2020-06-21] MEDS: SACUBITRIL/VALSARTAN 24/26 MG (ENTRESTO) TABLET PO SCH (21:15)
[2020-06-22 03:39] LABS: HEMATOCRIT 37 % (35-52); MEAN CORPUSCULAR HEMOGLOBIN 31 pg (25-34); MEAN CORPUSCULAR HGB CONC 33 g/dL (32-36); MEAN CORPUSCULAR VOLUME 96 fL (80-99); MEAN PLATELET VOLUME 9.1 fL (9.0-12.2); PLATELET COUNT 243 10^3/uL (130-400); WHITE BLOOD COUNT 7.1 10^3/uL (4.3-11.0)
[2020-06-22 03:59] LABS: ALANINE AMINOTRANSFERASE 46 U/L (0-55); ALBUMIN 3.3 GM/DL (3.2-4.5); ALKALINE PHOSPHATASE 74 U/L (40-136); BILIRUBIN,TOTAL 0.5 MG/DL (0.1-1.0); BUN/CREATININE RATIO 23; CALCIUM 8.3 MG/DL (8.5-10.1); CARBON DIOXIDE 24 MMOL/L (21-32); CHLORIDE 104 MMOL/L (98-107); CREATININE SERUM 0.69 MG/DL (0.60-1.30); GFR ESTIMATED > 60; GLUCOSE 84 MG/DL (70-105); POTASSIUM 4.4 MMOL/L (3.6-5.0); SODIUM 132 MMOL/L (135-145); TOTAL PROTEIN 5.3 GM/DL (6.4-8.2)
[2020-06-22] MEDS: ACETAMINOPHEN 500 MG TAB (TYLENOL) PO PRN (05:08)
[2020-06-22] MEDS ORDERED: CEFU500T63 PO (06:12)
--- NOTE | 2020-06-22 06:12 | Discharge Inst-Post CATH ---
Discharge Inst-CATH/EP Problems Reviewed?: Yes Post Cardiac Cath/EP D/C Inst Follow Up/Plan Appointment with DR Ulloa's office in one week <b>CARDIAC CATH/EP PROCEDURE DISCHARGE INSTRUCTIONS</b> ACTIVITY * Go Home directly and rest. * Limit activity of the leg (or wrist if it was used) for 7 days including aerobics, swimming, jogging, bicycling, etc. * Restrict stair-climbing for 7 days if possible, if not, climb up with your non-cath leg, then bring together on the same step. * Avoid lifting, pushing, pulling or excessive movement of the affected extremity for 7 days. * Customary sexual activity may be resumed after 2 days-use caution not to use a position that strains or causes pain to the affected extremity. * No driving for 24 hours. * NO SMOKING. * Avoid straining for bowel movements for 7 days. * Gentle walking on level ground is allowed. * Returning to work will depend on the type of procedure and the results. Your doctor will discuss this with you. CALL YOUR DOCTOR FOR ANY OF THE FOLLOWING: *If bleeding from the puncture site occurs- Apply gentle pressure to site with clean cloth and call your doctor or EMS. * If a knot or lump forms under the skin, increases in size, or causes pain. * If bruising appears to be worsening or moving further down your leg instead of disappearing. * Temperature above 101 F. CARE OF YOUR GROIN INCISION; * Bruising or purple discoloration of the skin near the puncture site is common. * You may shower only, no bathtub bathing for 5 days. Be careful to avoid slipping as your leg may feel stiff. * If a closure device was used on your femoral artery, please see the attached guide regarding care of the device and your leg. * Leave dressing on FOR 24 hours. CARE OF YOUR WRIST INCISION; * Bruising or purple discoloration of the skin near the puncture site is common. * You may shower. * DO NOT submerge wrist. * Leave dressing on FOR 24 hours. LUDMILA ULLOA MD June 22, 2020 06:12
[2020-06-22] MEDS: ceFAZolin INJECTION 1,000 MG in WATER (STERILE) FOR INJECTION 10 ML IV SCH (06:24)
[2020-06-22] MEDS ORDERED: LEVOTHYROXINE 88 MCG (LEVOTHORID) TAB PO SCH (06:30)
[2020-06-22 08:00] VITALS: BP 113/74
--- NOTE | 2020-06-22 08:04 | Cardiology Progress Note ---
Subjective Date Seen by Provider: June 22, 2020 Time Seen by Provider: 08:02 Subjective/Events-last exam Patient is laying down in bed, feeling better. No new complaint. No chest pain. Review of Systems General: No Chills, No Night Sweats, No Fatigue, No Malaise, No Appetite, No Other HEENT: No Head Aches, No Visual Changes, No Eye Pain, No Ear Pain, No Dysphasia, No Sinus Congestion, No Post Nasal Drip, No Sore Throat, No Other Pulmonary: No Dyspnea, No Cough, No Pleuritic Chest Pain, No Other Cardiovascular: No: Chest Pain, Palpitations, Orthopnea, Paroxysmal Noc. Dyspnea, Edema, Lt Headedness, Other Objective-Cardiology Exam Last Set of Vital Signs Vital Signs 06/21/20 06/22/20 06/22/20 23:30 04:03 07:00 Temp 36.8 Pulse 62 Resp 18 B/P (MAP) 110/74 (86) Pulse Ox 98 O2 Delivery Room Air Capillary Refill : I&O Intake and Output 06/22/20 00:00 Intake Total 1235 ml Balance 1235 ml Intake Oral 225 ml IV Total 1010 ml # Voids 2 General: Alert, Oriented X3, Cooperative HEENT: Atraumatic, PERRLA Neck: Supple, No JVD, No Thyromegaly Lungs: Clear to Auscultation, Normal Air Movement Heart: Regular Rate, Normal S1, Normal S2, No Murmurs Abdomen: Normal Bowel Sounds, Soft, No Tenderness, No Hepatosplenomegaly, No Masses Extremities: No Clubbing, No Cyanosis, No Edema, Normal Pulses, No Tenderness/Swelling Skin: No Rashes, No Breakdown, No Significant Lesion Neuro: Normal Gait, Normal Speech, Strength at 5/5 X4 Ext, Normal Tone, Sensati on Intact Psych/Mental Status: Mental Status NL, Mood NL Results Lab Laboratory Tests 06/22/20 03:30 A/P-Cardiology Admission Diagnosis Congestive heart failure, chronic compensated left ventricular systolic d ysfunction, ischemic cardiomyopathy Coronary artery disease Hypertension Hyperlipidemia Assessment/Plan Congestive heart failure, chronic compensated left ventricular systolic dy sfunction, ejection fraction 30 to 35%, ischemic cardiomyopathy, had single- chamber ICD implanted on June 21, 2020 without any complication, site is healing well, chest x-ray showed no infiltrate, reinterrogation of her ICD this morning showing good sensing and capture. Planning to discharge home, continue on Ceftin. Coronary artery disease, continue current medication monitor Hypertension, controlled, monitor blood pressure as an outpatient Hyperlipidemia, monitor lipids as an outpatient LUDMILA GREEN MD June 22, 2020 08:04
[2020-06-22] MEDS: SACUBITRIL/VALSARTAN 24/26 MG (ENTRESTO) TABLET PO SCH (08:44)
[2020-06-22] MEDS ORDERED: FUROSEMIDE 40 MG (LASIX) TAB PO SCH (09:00)
[2020-06-22] MEDS ORDERED: SPIRONOLACTONE 25 MG (ALDACTONE) TAB PO SCH (09:00)
[2020-06-22] MEDS ORDERED: CLOPIDOGREL 75 MG (PLAVIX) TABLET PO SCH (09:00)
[2020-06-22] MEDS ORDERED: WALK1EAC23 MC (09:20)
[2020-06-22 10:21] VITALS: BP 113/74
== END 2020-06-22 10:18 | disposition home or self-care (01) ==
LOC: CATH 07:02 → CSD 11:44 → CATH 06-22 10:18
PROVIDERS: ATTEND Internal Medicine Cardiovascular Disease
DX: I11.0 Hypertensive heart disease with heart failure (principal); I25.10 Atherosclerotic heart disease of native coronary artery without angina pectoris; I50.22 Chronic systolic (congestive) heart failure; E78.2 Mixed hyperlipidemia; I25.5 Ischemic cardiomyopathy; I65.23 Occlusion and stenosis of bilateral carotid arteries; J90 Pleural effusion, not elsewhere classified; E03.9 Hypothyroidism, unspecified; I08.3 Combined rheumatic disorders of mitral, aortic and tricuspid valves; Z88.0 Allergy status to penicillin; Z88.2 Allergy status to sulfonamides; Z79.82 Long term (current) use of aspirin; Z79.02 Long term (current) use of antithrombotics/antiplatelets; Z79.899 Other long term (current) drug therapy; Z87.891 Personal history of nicotine dependence; Z95.5 Presence of coronary angioplasty implant and graft; Z98.890 Other specified postprocedural states; Z79.890 Hormone replacement therapy
CPT/HCPCS: 33262; 71045; 80053 ×2; 80061; 85027 ×2; 85610; 85730; 87081; 93005; 93641; C1722; C1895; 36415

== ENCOUNTER → 2020-10-12 | Outpatient (CLI) | payer MEDICARE, OTHER ==
[~2020-10-12] MED LIST changes: +CEFU500T63 PO; +CHOL10007 PO; +FURO40TA4 PO; +IBUP-2473 PO; +SACU1TAB2 PO; +WALK1EAC23 MC
--- NOTE | 2020-10-12 09:09 | Diagnostic Imaging Report ---
CLINICAL INDICATION: Patient with hypothyroidism. EXAM: Ultrasound of the thyroid gland. COMPARISONS: Thyroid ultrasound exam dated 02/09/2020 FINDINGS: THYROID NODULES: There is interval development of a 5 mm x 5 mm hypoechoic nodular area involving the mid left thyroid lobe. There is interval development of another heterogeneous, predominantly hypoechoic nodule involving the mid to inferior left thyroid lobe which measures 4 mm in greatest axial dimension. Both nodules are wider than taller, smooth and demonstrate no calcifications. There is no significant central Doppler flow seen and there is no solid component noted. There are no other nodules seen. There were no nodules seen on the prior study. THYROID GLAND: Besides the thyroid nodules, the thyroid gland is small in size and heterogeneous. This was also noted on the prior study. The right lobe measures 3.3 cm x 0.7 cm x 0.6 cm and the left lobe measures 3.1 cm x 1.0 cm x 0.8 cm in their three dimensions. The right and left thyroid lobes previously measured 3.3 cm x 1.4 cm x 0.9 cm and 2.8 cm x 0.9 cm x 0.6 cm. ISTHMUS: The isthmus is unremarkable and measures 2 mm in thickness. IMPRESSION: 1: Interval development of 2 closely adjacent nodules involving left thyroid lobe with the largest one measuring 5 mm. TIRADS 2. 2: Heterogeneous and small thyroid gland is again noted. Dictated by: Dictated on workstation # [id number]
== END ==
LOC: RAD 07:41
PROVIDERS: ATTEND Family Medicine
DX: E04.2 Nontoxic multinodular goiter (principal); E03.9 Hypothyroidism, unspecified
CPT/HCPCS: 76536

== ENCOUNTER → 2021-01-16 | Outpatient (CLI) | payer MEDICARE, OTHER | LOC: CARD 08:30 | PROVIDERS: ATTEND Internal Medicine Cardiovascular Disease | DX: I35.8 Other nonrheumatic aortic valve disorders (principal); I10 Essential (primary) hypertension | CPT/HCPCS: 93306 ==

== ENCOUNTER → 2021-03-07 | Outpatient (CLI) | payer MEDICARE, OTHER ==
--- NOTE | 2021-03-08 09:40 | Diagnostic Imaging Report ---
Indication: Routine screening. Comparison is made with prior mammogram from 03/06/2020 and 03/01/2019. 2-D and 3-D unilateral right screening mammography was performed with CAD. Right breast is heterogeneously dense, limiting the sensitivity of mammography. No mass or malignant-appearing microcalcifications are seen. Right axilla is unremarkable. IMPRESSION: BI-RADS Category 1 No mammographic features suspicious for malignancy are identified. ACR BI-RADS Category 1: Negative. Result letter will be mailed to the patient. Note: At least 10% of breast cancer is not imaged by mammography. Dictated by: Dictated on workstation # [id number]
== END ==
LOC: RAD 07:45
PROVIDERS: ATTEND Internal Medicine Hematology & Oncology
DX: Z12.31 Encounter for screening mammogram for malignant neoplasm of breast (principal); Z85.3 Personal history of malignant neoplasm of breast
CPT/HCPCS: 77063

== ENCOUNTER → 2022-01-22 | Outpatient (CLI) | payer MEDICARE, OTHER | LOC: CARD 10:32 | PROVIDERS: ATTEND Internal Medicine Cardiovascular Disease | DX: I35.8 Other nonrheumatic aortic valve disorders (principal); I10 Essential (primary) hypertension | CPT/HCPCS: 93306 ==

== ENCOUNTER → 2022-01-30 | Outpatient (CLI) | payer MEDICARE, OTHER ==
[~2022-01-30] MED LIST changes: +CATHETER FLUSH 10 ML SYR IVP PRN; +REGADENOSON 0.4 MG/5 ML SYR (LEXISCAN) IV ONE
[2022-01-30 09:48] VITALS: BP 100/66
--- NOTE | 2022-01-30 11:42 | Cardiology Stress Test Report ---
Stress Test Report Date of Procedure/Referring: Date of Procedure: Jan 30, 2022 PCP Diane Arce DO Admitting Physician Admitting Physician: Attending Physician: Teddy Ulloa MD Indications: CAD Baseline Heart Rate: 51 Baseline Blood Pressure: Blood Pressure Systolic: 100 Blood Pressure Diastolic: 66 Baseline Vitals Vital Signs Date Time Temp Pulse Resp B/P (MAP) Pulse Ox O2 Delivery O2 Flow Rate FiO2 01/30/22 09:48 54 100/66 (77) Baseline EKG: Baseline EKG: NSR Summary After explaining the procedure to the patient, she signed a consent and then brought to the stress nuclear laboratory. Patient received 0.4 mg Lexiscan for stress test, ECG, heart rate and blood pressure were monitored continuously. Resting and stress dose of radio tracer were injected, imaging was acquired and reviewed in short axis, horizontal long axis and vertical long axis views. SSS: 1 SDS: 1 EF: 69 1. Patient tolerated Lexiscan well 2. Baseline EKG abnormality with T wave inversion noted in lead II, III, aVF, V4, V5 and V6 persisted during test 3. Breast attenuation with mild decrease uptake at the anterior apical segment with mild reversibility 4. Normal left ventricular size, ejection fraction 69% Copy Copies To 1: DIANE ARCE BASHAR J MD Jan 30, 2022 11:42
== END ==
LOC: CARD 08:00
PROVIDERS: ATTEND Internal Medicine Cardiovascular Disease
DX: N64.89 Other specified disorders of breast (principal); I10 Essential (primary) hypertension; I25.10 Atherosclerotic heart disease of native coronary artery without angina pectoris
CPT/HCPCS: 78452; 93017; A9502

== ENCOUNTER → 2022-03-11 | Outpatient (CLI) | payer MEDICARE, OTHER ==
[~2022-03-11] MED LIST changes: -CATHETER FLUSH 10 ML SYR IVP PRN; -POTA10CA43 PO; +POTA10CA44 PO; -REGADENOSON 0.4 MG/5 ML SYR (LEXISCAN) IV ONE
--- NOTE | 2022-03-11 12:18 | Diagnostic Imaging Report ---
INDICATION: Routine screening. COMPARISON: 03/07/2021 and 03/06/2020. TECHNIQUE: Unilateral right 2D and 3D screening mammography was performed with CAD. FINDINGS: The right breast is heterogeneously dense, limiting the sensitivity of mammography. No mass or malignant-appearing microcalcifications are seen. The right axilla is unremarkable. IMPRESSION: No mammographic features suspicious for malignancy are identified. ACR BI-RADS Category 1: Negative. Result letter will be mailed to the patient. Note: At least 10% of breast cancer is not imaged by mammography. Dictated by: Dictated on workstation # [id number]
== END ==
LOC: RAD 07:57
PROVIDERS: ATTEND Nurse Practitioner Family
DX: Z12.31 Encounter for screening mammogram for malignant neoplasm of breast (principal); Z85.3 Personal history of malignant neoplasm of breast
CPT/HCPCS: 77063

== ENCOUNTER → 2022-05-22 | Outpatient (CLI) | payer MEDICARE, OTHER ==
--- NOTE | 2022-05-22 08:44 | Diagnostic Imaging Report ---
EXAMINATION: Left shoulder radiograph TECHNIQUE: AP and oblique view of the left shoulder pain. HISTORY: PAIN OF LEFT SHOULDER JOINT COMPARISON: None available. FINDINGS: No acute osseous findings. Mild joint space narrowing and marginal osteophyte formation. The lungs demonstrate aortic atherosclerosis. Surgical clips within the axilla. IMPRESSION: No acute fracture or dislocation of the left shoulder. Mild degenerative changes. Dictated by: Dictated on workstation # [id number]
== END ==
LOC: ORTHO 08:20
PROVIDERS: ATTEND Orthopaedic Surgery
DX: M19.012 Primary osteoarthritis, left shoulder (principal); I10 Essential (primary) hypertension; E78.2 Mixed hyperlipidemia; E03.9 Hypothyroidism, unspecified
CPT/HCPCS: 20610; 73030; G0463

== ENCOUNTER → 2022-07-30 | Outpatient (CLI) | payer MEDICARE, OTHER ==
--- NOTE | 2022-07-30 16:57 | Diagnostic Imaging Report ---
EXAMINATION: Lumbosacral spine 2 or 3 views HISTORY: Back pain. Radiculopathy. COMPARISON: None available. FINDINGS: Height loss is seen at the L2 vertebral body. There is left convexity curvature of the thoracolumbar spine centered at the L2-L3 level. There is generalized osteopenia. No suspicious focal osseous lesions. IMPRESSION: 1. Age-indeterminate height loss in the L2 vertebral body. Recommend correlation with point tenderness and if indicated CT or MRI of the lumbar spine to further evaluate. 2. Generalized osteopenia. Dictated by: Dictated on workstation # [id number]
== END ==
LOC: RAD 15:47
PROVIDERS: ATTEND Family Medicine
DX: M51.16 Intervertebral disc disorders with radiculopathy, lumbar region (principal); M85.80 Other specified disorders of bone density and structure, unspecified site
CPT/HCPCS: 72100

== ENCOUNTER 2022-08-08 11:06 | Outpatient (RCR) | payer MEDICARE, OTHER | END 2022-08-09 | disposition home or self-care (01) | PROVIDERS: ATTEND Family Medicine | DX: M54.16 Radiculopathy, lumbar region (principal) ==

== ENCOUNTER 2022-09-06 12:53 | Outpatient (RCR) | payer MEDICARE, OTHER ==
[~2022-09-06 12:53] MED LIST changes: -POTA10CA44 PO; +POTA10CA84 PO
== END 2022-09-09 | disposition home or self-care (01) ==
PROVIDERS: ATTEND Family Medicine
DX: M54.16 Radiculopathy, lumbar region (principal)

== ENCOUNTER 2022-10-02 12:49 | Outpatient (RCR) | payer MEDICARE, OTHER | END 2022-10-10 | disposition home or self-care (01) | PROVIDERS: ATTEND Family Medicine | DX: M54.16 Radiculopathy, lumbar region (principal); M25.551 Pain in right hip ==